=== PATIENT | male | born 1970 | race Caucasian/White ===

== ENCOUNTER 2018-04-19 17:19 | Emergency (ER) | payer MEDICAID ==
--- NOTE | 2018-04-19 17:42 | EDPHY ---
H & P Time Seen by Provider: 04/19/18 17:32 HPI/ROS: CHIEF COMPLAINT: Laceration left thumb HISTORY OF PRESENT ILLNESS: 47-year-old [id number] male with up-to- date tetanus was taking a new knife out of its packaging when he sustained accidental laceration to his left thumb proximal phalanx dorsal aspect. Occurred shortly prior to arrival. This was accidental. No paresthesia no sensory or motor deficit. Able to extend at the MCP and IP with no deficit. PHYSICAL EXAM (Prior to examination, patient consented to physical exam, hands were washed and my usual and customary physical exam procedures followed) 1) GENERAL: Well-developed, well-nourished, alert and oriented. Appears to be in no acute distress. 2) HEAD: Normocephalic 3) HEENT: sclera anicteric 4) LUNGS: Breathing comfortably. 5) SKIN: Left thumb dorsal aspect 2 cm well-demarcated linear laceration proximal phalanx. 6) MUSCULOSKELETAL: Extension, abduction, opposition to the left thumb intact both the MCP and IP 7) NEUROLOGIC: Full sensation two-point discrimination intact distally Smoking Status: Never smoked Constitutional: Initial Vital Signs Temperature (C) 36.8 C 04/19/18 17:28 Heart Rate 51 L 04/19/18 17:28 Respiratory Rate 18 04/19/18 17:28 Blood Pressure 137/94 H 04/19/18 17:28 O2 Sat (%) 95 04/19/18 17:28 O2 Delivery Mode Room Air Allergies/Adverse Reactions: Penicillins Allergy (Verified 04/19/18 17:27) Home Medications: Medication Instructions Recorded Advair 100/50 (*) 04/19/18 Cephalexin [Keflex] 500 mg PO TID 7 Days cap 04/19/18 Proair Hfa 04/19/18 MDM/Departure - MDM Procedures: Procedure: Laceration repair. I explained the indications, risks and benefits for both laceration repair and anesthetic administration. Verbal consent was obtained from the patient . The laceration on the left thumb was anesthetized using 0.5% bupivicaine without epinephrine . After anesthetic administered the patient was observed for a period of time and had no apparent adverse effects. The wound was cleaned, prepped, draped in normal sterile fashion and explored to its base. No foreign body seen, no foreign bodies palpated. Extensor tendon laceration is noted. The wound was closed with 7 simple interrupted 5 O Prolene sutures . The wound repair was complex. The procedure was performed by myself. Patient has been informed that scarring will occur, although efforts have been made to minimize this. Procedure: Splint A Velcro thumb spica splint was applied by ER altitude chamber technician to reduce stress on laceration site. After application of the splint I returned and re-examined the patient. The splint was adequately immobilizing the joint and distal to the splint the patient's circulation and sensation were intact. Patient shows no signs of compartment syndrome. Was given orthopedic precautions. ED Course/Re-evaluation: I saw this patient independently based on established practice protocols. Care of patient under supervision of secondary supervising physician Dr Villegas . Patient was re-evaluated with serial exams. On exam he has no extensor or abduction deficits but is noted to have a laceration to extensor tendon. At this time the skin has been closed and I recommend he follow up with on-call hand surgery in the next few days given this referral information. I am initiating prophylactic antibiotics and have placed the patient in a splint to reduce stress on this area. He feels comfortable with this plan. All questions and concerns addressed by myself. My usual and customary wound precautions and instructions provided. - Depart Disposition: Home, Routine, Self-Care Clinical Impression: Laceration of left thumb Qualifiers: Encounter type: initial encounter Damage to nail status: with damage Foreign body presence: without foreign body Qualified Code(s): S61.112A - Laceration without foreign body of left thumb with damage to nail, initial encounter Condition: Good Instructions: Care For Your Stitches (ED), Care For Your Stitches (DC), Laceration (ED) Additional Instructions: Return to the ER if you develop redness, swelling, discharge, warmth to the wound, red streaks going up your arm, or any other symptoms that concern you. Return come to the ER in 10 days for suture removal Prescriptions: Cephalexin [Keflex] 500 mg PO TID 7 Days cap Referrals: Javi Veliz MD [Medical Doctor] - 2-3 days, call for appt.
[2018-04-19 18:20] VITALS: BP 140/78
== END 2018-04-19 18:20 | disposition home or self-care (01) ==
PROC: 0HQGXZZ Repair Left Hand Skin, External Approach (ICD-10-PCS; principal; 2018-04-19)
DX: S61.112A Laceration without foreign body of left thumb with damage to nail, initial encounter (principal); W26.0XXA Contact with knife, initial encounter; Y92.9 Unspecified place or not applicable; Y93.89 Activity, other specified; Y99.9 Unspecified external cause status
CPT/HCPCS: L3807